=== PATIENT | female | born 1980 | race African-American/Black ===

== ENCOUNTER 2021-02-17 10:20 | Inpatient (IN) ==
[2021-02-10 13:19] LABS: Bacteria,Urine Few /HPF (Few); Bilirubin,Urine Negative (Negative); Blood, Urine Small mg/dL (Negative); Glucose,Urine (UA) Negative (Negative); Ketones,Urine Negative (Negative); Mucus,Urine Few /LPF (Occasional); Nitrite,Urine Negative (Negative); Protein,Urine Negative; RBC,Urine 1 /HPF (0-4); Squamous Epithelial Cell,Urine Occasional /HPF (0-10); Urine Appearance CLOUDY (Clear); Urine Color Yellow (Yellow); Urine Urobilinogen < 2.0 EU/DL (0.2-1.0)
[2021-02-10 13:41] LABS: Basophils % 0.3 % (0.0-0.8); Eosinophils # 0.2 10*3/uL (0.0-0.87); Eosinophils % 1.8 % (0.00-10.9); Hematocrit 35.9 VOL% (35.7-47.0); Hemoglobin 10.9 GM/DL (12.0-16.0); Immature Granulocytes % 0.3 %; Immature Granulocytes Absolute 0.03 #; Lymphocytes # 2.8 10*3/uL (1.4-4.0); Lymphocytes % 29.1 % (21.3-54.2); Mean Corpuscular HGB Conc 30.4 GM/DL (32-36); Mean Corpuscular Volume 85.5 FL (87-102); Mean Platelet Volume 9.5 FL (9.6-12.0); Monocytes % 7.8 % (1.7-12.7); Neutrophils % 60.7 % (38.7-73.9); Platelet Count 488 T/CUMM (130-400); Red Cell Distribution Width 14.6 % (9.3-17.3); White Blood Count 9.6 T/CUMM (4-12)
[2021-02-10 14:31] LABS: HIV Antigen/Antibody Result Nonreactive (Nonreactive)
[2021-02-10 14:51] LABS: Albumin 3.9 G/DL (3.4-5.0); Bilirubin,Total 0.9 MG/DL (0.20-1.00); Calcium 9.5 MG/DL (8.5-10.1); Osmolality,Calculated 276.5 MOS/KG (273-304); Total Protein 7.8 G/DL (6.4-8.2)
[2021-02-10 14:52] LABS: Potassium 3.7 MMOL/L (3.5-5.1); Risk Ratio 3.03; VLDL Cholesterol 16.2 MG/DL
[~2021-02-17 10:20] MED LIST: AMPICILLIN/SULBACTAM 3,000 MG in SODIUM CHLORIDE 0.9% 100 ML IV ONE; LACTATED RINGERS 1,000 ML IV SCH
[2021-02-17] MEDS ORDERED: GABAPENTIN 400 MG CAPSULE PO ONE (11:17)
[2021-02-17] MEDS ORDERED: FAMOTIDINE 20 MG TABLET PO ONE (11:17)
[2021-02-17] MEDS ORDERED: DIAZEPAM 5 MG TABLET PO ONE (11:17)
[2021-02-17] MEDS ORDERED: ACETAMINOPHEN 500 MG TABLET PO ONE (11:17)
[2021-02-17] MEDS ORDERED: ROPIVACAINE 0.5% 30 ML VIAL ONE (14:17)
[2021-02-17] MEDS ORDERED: DEXAMETHASONE 4 MG/1 ML VIAL ONE ×2 (14:17→15:44)
[2021-02-17] MEDS ORDERED: LIDOCAINE 1% 5 ML VIAL ONE (14:17)
[2021-02-17] MEDS ORDERED: AMPICILLIN/SULBACTAM 3,000 MG VIAL ONE (14:20)
[2021-02-17] MEDS ORDERED: ONDANSETRON 4 MG/2 ML VIAL ONE (14:20)
[2021-02-17] MEDS ORDERED: LIDOCAINE 2% 5 ML VIAL ONE (14:20)
[2021-02-17] MEDS ORDERED: MIDAZOLAM 2 MG/2 ML VIAL ONE (14:20)
[2021-02-17] MEDS ORDERED: propofoL 200 MG/20 ML VIAL IV ONE (14:20)
[2021-02-17] MEDS ORDERED: SEVOFLURANE 1 UNIT/15 MINUTE INH ONE ×3 (14:20→16:37)
[2021-02-17] MEDS ORDERED: ROCURONIUM 50 MG/5 ML VIAL IV ONE (14:20)
[2021-02-17] MEDS ORDERED: fentaNYL 100 MCG/2 ML VIAL ONE (14:21)
[2021-02-17] MEDS ORDERED: SCOPOLAMINE 1.5 MG PATCH TRANSDERM ONE (15:00)
[2021-02-17] MEDS ORDERED: DESFLURANE 1 UNIT/15 MINUTE INH ONE (15:44)
[2021-02-17] MEDS ORDERED: LACTATED RINGERS 1,000 ML IV ONE (16:19)
[2021-02-17] MEDS ORDERED: HYDROmorphone 2 MG/1 ML VIAL ONE (16:39)
[2021-02-17] MEDS ORDERED: ONDANSETRON 4 MG/2 ML VIAL IV PRN (16:52)
[2021-02-17] MEDS ORDERED: ACETAMINOPHEN 325 MG TABLET PO PRN (16:52)
[2021-02-17] MEDS ORDERED: BISACODYL 10 MG SUPP RECTAL PRN (16:52)
[2021-02-17] MEDS ORDERED: BENZOCAINE/MENTHOL LOZENGE 18/BOX PO PRN (16:52)
[2021-02-17] MEDS ORDERED: HYDROmorphone 2 MG/1 ML VIAL IV PRN (16:53)
[2021-02-17] MEDS ORDERED: LACTATED RINGERS 1,000 ML IV SCH (17:00)
[2021-02-17 17:45] LABS: Bilirubin,Urine Negative (Negative); Blood, Urine Negative (Negative); Glucose,Urine (UA) Negative (Negative); Ketones,Urine Negative (Negative); Mucus,Urine Occasional /LPF (Occasional); Nitrite,Urine Negative (Negative); Protein,Urine Negative; RBC,Urine 1 /HPF (0-4); Squamous Epithelial Cell,Urine Occasional /HPF (0-10); Urine Appearance CLEAR (Clear); Urine Color Yellow (Yellow); Urine Specific Gravity 1.013 (1.001-1.035); Urine Urobilinogen < 2.0 EU/DL (0.2-1.0)
[2021-02-17] MEDS: KETOROLAC 30 MG/1 ML VIAL IV PRN (18:27)
[2021-02-18] MEDS: KETOROLAC 30 MG/1 ML VIAL IV PRN (05:53)
[2021-02-18 06:15] LABS: Basophils % 0.1 % (0.0-0.8); Hematocrit 30.8 VOL% (35.7-47.0); Hemoglobin 9.5 GM/DL (12.0-16.0); Immature Granulocytes % 0.4 %; Immature Granulocytes Absolute 0.05 #; Lymphocytes # 1.2 10*3/uL (1.4-4.0); Lymphocytes % 9.7 % (21.3-54.2); Mean Corpuscular HGB Conc 30.8 GM/DL (32-36); Mean Corpuscular Volume 85.1 FL (87-102); Mean Platelet Volume 9.7 FL (9.6-12.0); Neutrophils % 83.8 % (38.7-73.9); Platelet Count 452 T/CUMM (130-400); Red Blood Count 3.62 MC/CUMM (3.8-5.5); Red Cell Distribution Width 14.4 % (9.3-17.3); White Blood Count 11.9 T/CUMM (4-12)
[2021-02-18 06:37] LABS: Hypochromasia Slight; Lymphocytes 14 % (20-55); Platelet Estimate Increased; Segmented Neutrophils 83 % (50-85); Total Cells Counted 100
[2021-02-18 06:38] LABS: Microcytosis Slight
[2021-02-18] MEDS: MAGNESIUM HYDROXIDE SUSP 30 ML UDCUP PO PRN (08:48)
[2021-02-18] MEDS: METOCLOPRAMIDE 10 MG TABLET PO SCH ×2 (08:49→16:04)
[2021-02-18] MEDS: DOCUSATE SODIUM 100 MG CAPSULE PO PRN ×2 (08:49→19:21)
[2021-02-18] MEDS: IBUPROFEN 800 MG TABLET PO PRN ×2 (08:49→19:23)
[2021-02-18] MEDS: SIMETHICONE CHEW 80 MG TABLET PO PRN (19:59)
[2021-02-19] MEDS: METOCLOPRAMIDE 10 MG TABLET PO SCH ×2 (00:09→08:00)
[2021-02-19] MEDS: IBUPROFEN 800 MG TABLET PO PRN (06:16)
[2021-02-19] MEDS: SIMETHICONE CHEW 80 MG TABLET PO PRN (06:18)
[2021-02-19] MEDS: MAGNESIUM HYDROXIDE SUSP 30 ML UDCUP PO PRN (08:00)
[2021-02-19] MEDS: DOCUSATE SODIUM 100 MG CAPSULE PO PRN (08:01)
[2021-02-19] MEDS ORDERED: FERROUS SULFATE 325 MG TABLET PO SCH (09:00)
[2021-02-19] MEDS ORDERED: MAGNESIUM CITRATE 300 ML BOTTLE PO ONE (09:35)
[2021-02-19 12:35] VITALS: BP 126/72
== END 2021-02-19 13:58 | disposition home or self-care (01) | DRG 743 ==
LOC: N.OR 10:20 → N.SDSINP 10:34 → N.OB 16:52 → EDSTATUS 17:15 → N.OB 17:50
PROVIDERS: ADMIT Obstetrics & Gynecology; ATTEND Obstetrics & Gynecology